=== PATIENT | female | born 1995 | race Caucasian/White ===

== ENCOUNTER 2017-04-01 15:07 | Emergency (ER) | payer SELFPAY ==
--- NOTE | 2017-04-01 16:12 | PHYS DOC ---
Adult General Chief Complaint Chief Complaint: VAGINAL BLEEDING HPI HPI This 22-year-old lady presents with vaginal bleeding and she passed some clots and is worried. She is just been started on control pills for irregular bleeding and she just stopped them a couple days ago and started getting heavy bleeding with some lower abdominal pain. This young ladystates that she says mild lower abdominal pain. She states that she's been having some nausea and getting sick and so she thought it would be best to stop her control pills. Review of Systems Review of Systems Constitutional: Denies fever or chills Eyes: Denies change in visual acuity, redness, or eye pain [] HENT: Denies nasal congestion or sore throat [] Respiratory: Denies cough or shortness of breath [] Cardiovascular: No additional information not addressed in HPI [] GI: Denies abdominal pain, nausea, vomiting, bloody stools or diarrhea [] : Denies dysuria or hematuria [] Musculoskeletal: Denies back pain or joint pain [] Integument: Denies rash or skin lesions [] Neurologic: Denies headache, focal weakness or sensory changes [] Endocrine: Denies polyuria or polydipsia [] Physical Exam Physical Exam Constitutional: Well developed, well nourished, no acute distress, non-toxic appearance. Mild exogenous obesity HENT: Normocephalic, atraumatic, bilateral external ears normal, oropharynx moist, no oral exudates, nose normal. [] Eyes: PERRLA, EOMI, conjunctiva normal, no discharge. [] Neck: Normal range of motion, no tenderness, supple, no stridor. [] Cardiovascular:Heart rate regular rhythm, no murmur [] Lungs & Thorax: Bilateral breath sounds clear to auscultation [] Abdomen: Bowel sounds normal, soft, no tenderness, no masses, no pulsatile masses. [] Skin: Warm, dry, no erythema, no rash. [] Back: No tenderness, no CVA tenderness. [] Extremities: No tenderness, no cyanosis, no clubbing, ROM intact, no edema. [] Neurologic: Alert and oriented X 3, normal motor function, normal sensory function, no focal deficits noted. [] Psychologic: Affect normal, judgement normal, mood normal. [] Pelvic examination; there is blood present in the vaginal vault, cervix is closed, there is no cervical motion tenderness, no adnexal tenderness cultures were taken Current Patient Data Lab Results Laboratory Tests Test 04/01/17 15:35 POC Urine HCG, Qualitative hcg negative (Negative) EKG EKG [] Radiology/Procedures Radiology/Procedures [] Impressions: Dysfunctional uterine bleeding Course & Med Decision Making Course & Med Decision Making Pertinent Labs and Imaging studies reviewed. (See chart for details) The patient was informed that it would be best for an [employer]ANCE SPECIALIST doctor to adjust her hormone therapy and that the bleeding was probably secondary to stopping her control pills She was reassured and referred to her [facility] INSURANCE SPECIALIST doctor [] Dragon Disclaimer Dragon Disclaimer This chart was dictated in whole or in part using Voice Recognition software in a busy, high-work load, and often noisy Emergency Department environment. It may contain unintended and wholly unrecognized errors or omissions. Departure Departure: Referrals: PCP,NO (PCP) SUSANNA CARRANZA MD April 01, 2017 16:12
[2017-04-01 16:40] VITALS: BP 120/73
[2017-04-02 16:08] LABS: CHLAMYDIA PROBE Negative (Negative)
== END 2017-04-01 16:40 | disposition home or self-care (01) ==
LOC: ER 15:07
DX: N93.8 Other specified abnormal uterine and vaginal bleeding (principal)
CPT/HCPCS: 36415; 81025; 84703; 87491; 87591; 99284

== ENCOUNTER 2019-11-08 18:27 | Emergency (ER) | payer BC, OTHER ==
[2019-11-08] MEDS ORDERED: TRAM50TA PO (19:59)
[2019-11-08 20:25] VITALS: BP 119/73
--- NOTE | 2019-11-09 19:25 | PHYS DOC ---
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 No posterior leg pain, swelling or direct injury. No chest pain or shortness breath. [] Review of Systems Review of Systems Review symptoms as per history of present illness. All other review symptoms are negative. All other systems were reviewed and found to be within normal limits, except as documented in this note. Allergies Allergies Allergies Coded Allergies Type Severity Reaction Last Updated Verified No Known Drug Allergies 04/01/17 No Physical Exam Physical Exam Constitutional: Well developed, well nourished, no acute distress, non-toxic appearance. [] HENT: Normocephalic, atraumatic, bilateral external ears normal, oropharynx moist, no oral exudates, nose normal. [] Eyes: PERRLA, EOMI, conjunctiva normal, no discharge. [] Neck: Normal range of motion, no tenderness, supple, no stridor. [] Cardiovascular:Heart rate regular rhythm, no murmur [] Lungs & Thorax: Bilateral breath sounds clear to auscultation [][] Neurologic: Alert and oriented X 3, normal motor function, normal sensory function, no focal deficits noted. [] Psychologic: Affect normal, judgement normal, mood normal. [] Current Patient Data Vital Signs Vital Signs Date Time Temp Pulse Resp B/P (MAP) Pulse Ox O2 Delivery O2 Flow Rate FiO2 11/08/19 20:25 85 16 119/73 (88) 96 Room Air 11/08/19 18:56 96.1 EKG EKG [] Radiology/Procedures Radiology/Procedures [] Course & Med Decision Making Course & Med Decision Making Pertinent Labs and Imaging studies reviewed. (See chart for details) [Right leg sprain. Recommend supportive care with PCP follow-up.] Randaon Disclaimer Keshia Disclaimer This electronic medical record was generated, in whole or in part, using a voice recognition dictation system. Departure Departure: Impression: Primary Impression: Sprain of right lower leg Disposition: HOME, SELF-CARE Condition: GOOD Patient Instructions: Sprain Additional Instructions: Apply ice, elevate, take ibuprofen for pain and tramadol as needed for additional relief. Stay off leg next 2 days. Follow-up with PCP if symptoms persist. Scripts Tramadol Hcl (TRAMADOL HCL) 50 Mg Tablet 50 MG PO PRN Q6HRS PRN for PAIN, #15 TAB Prov: IVONNE CHRISTIANSON DO 11/08/19 IVONNE CHRISTIANSON DO Nov 09, 2019 19:25
== END 2019-11-08 20:27 | disposition home or self-care (01) ==
LOC: ER 18:27
DX: S93.401A Sprain of unspecified ligament of right ankle, initial encounter (principal); X50.9XXA Other and unspecified overexertion or strenuous movements or postures, initial encounter; Y93.89 Activity, other specified; Y92.89 Other specified places as the place of occurrence of the external cause; Y99.0 Civilian activity done for income or pay
CPT/HCPCS: 99283

== ENCOUNTER → 2020-01-06 | Outpatient (CLI) | payer BC, OTHER ==
[~2020-01-06] MED LIST: IOHEXOL 240 MG/ML 50ML VIAL. ONE; IOHEXOL 300 MG/ML 75 ML VIAL. IV ONE; TRAM50TA PO
--- NOTE | 2020-01-06 14:32 | RAD ---
CT ABD PELV W/ORAL IV CONTRAST History: Abdominal pain for 4 days, nausea and vomiting, back pain Comparison: None. Technique: After administration of intravenous contrast, helical CT of the abdomen and pelvis was performed from the lung bases through the ischial tuberosities. Coronal and sagittal reconstructions were obtained. 75 mL of Omnipaque 300 were used. One or more of the following dose reduction techniques were utilized: Automated exposure control (AEC), Adjustment of mA and/or kV according to patient size, Use of iterative reconstruction technique such as ASiR, CT scan done according to ALARA and image gently/image wisely Abdomen Findings: The visualized lung bases are clear. The liver, gallbladder, pancreas, spleen, and bilateral adrenal glands are normal. Symmetric renal enhancement. There is no focal renal mass. There is no hydronephrosis. The visualized loops of small bowel are normal. The visualized loops of large bowel are normal. There is no evidence of bowel obstruction. Appendix is normal. There is no free fluid. There is no mesenteric or retroperitoneal adenopathy. The abdominal aorta is normal in caliber. Pelvis Findings: Urinary bladder is normal. Mild pelvic free fluid, likely physiologic. Uterus is present. IUD in place. There is no pelvic or inguinal adenopathy. There is no acute bony abnormality. IMPRESSION: No acute findings. Electronically signed by: Hussein Moran MD (01/06/2020 2:29 PM) [id number]
== END | disposition home or self-care (01) ==
LOC: CT 12:35
PROVIDERS: ATTEND Family Medicine
DX: R10.84 Generalized abdominal pain (principal)
CPT/HCPCS: 74177; Q9967